=== PATIENT | female | born 1965 | race Caucasian/White ===

== ENCOUNTER 2017-04-30 18:14 | Emergency (ER) | payer BC ==
--- NOTE | 2017-04-30 18:24 | ED ---
General Adult HPI - General Chief complaint: Abdominal Pain Stated complaint: Lower abd pain Time Seen by Provider: 04/30/17 18:23 Source: patient, RN notes reviewed, old records reviewed Mode of arrival: ambulatory Limitations: no limitations - History of Present Illness Initial comments: This is a 51-year-old female yesterday for evaluation. Patient coming a little quantify pain suprapubic pain and abdominal pain radiating to groin reined to back rating down leg. Severe. Burning. No issues with urination, patient does have some bowel issues, has history of rectal prolapse and secondary to vaginal deliveries. Patient denies any fevers or chills should no significant sick contacts, patient denies prior colonoscopy her prior episodes of abdominal pain - Related Data Home Medications Medication Instructions Recorded Confirmed No Known Home Medications [No 04/30/17 04/30/17 Known Home Medications] Allergies Allergy/AdvReac Type Severity Reaction Status Date / Time No Known Allergies Allergy Verified 04/30/17 18:23 Review of Systems ROS Statement: Those systems with pertinent positive or pertinent negative responses have been documented in the HPI. ROS Other: All systems not noted in ROS Statement are negative. Past Medical History Past Medical History: No Reported History History of Any Multi-Drug Resistant Organisms: None Reported Past Surgical History: No Surgical Hx Reported Past Psychological History: Anxiety Smoking Status: Never smoker Past Alcohol Use History: None Reported Past Drug Use History: None Reported General Exam Limitations: no limitations General appearance: alert, in no apparent distress Head exam: Present: atraumatic, normocephalic, normal inspection Eye exam: Present: normal appearance, PERRL, EOMI. Absent: scleral icterus, conjunctival injection, periorbital swelling ENT exam: Present: normal exam, mucous membranes moist Neck exam: Present: normal inspection. Absent: tenderness, meningismus, lymphadenopathy Respiratory exam: Present: normal lung sounds bilaterally. Absent: respiratory distress, wheezes, rales, rhonchi, stridor Cardiovascular Exam: Present: regular rate, normal rhythm, normal heart sounds. Absent: systolic murmur, diastolic murmur, rubs, gallop, clicks GI/Abdominal exam: Present: soft, normal bowel sounds. Absent: distended, tenderness, guarding, rebound, rigid Extremities exam: Present: normal inspection, full ROM, normal capillary refill. Absent: tenderness, pedal edema, joint swelling, calf tenderness Back exam: Present: normal inspection Neurological exam: Present: alert, oriented X3, CN II-XII intact Psychiatric exam: Present: normal affect, normal mood Skin exam: Present: warm, dry, intact, normal color. Absent: rash Course Vital Signs 04/30/17 04/30/17 04/30/17 18:20 19:28 19:56 Temperature 99 F Pulse Rate 107 H 92 87 Respiratory 20 18 18 Rate Blood Pressure 213/116 221/116 204/104 O2 Sat by Pulse 98 99 Oximetry - Reevaluation(s) Reevaluation #1: 04/30/17 20:16 Patient is in no acute distress no abdominal pain at this time Medical Decision Making - Medical Decision Making 51. Ear with nonspecific left lower quadrant abdominal pain worse with bowel movements. Patient does have follow-up with GI will see Dr. Mcnulty's continue follow CT is negative, spoke extensively regarding blood pressure, stateds strictly whitecoat syndrome refuses take medication the patient will be discharged home - Lab Data Result diagrams: 04/30/17 19:20 04/30/17 19:20 Lab Results 04/30/17 04/30/17 04/30/17 Range/Units 19:20 19:20 19:20 WBC 8.5 (3.8-10.6) k/uL RBC 5.23 (3.80-5.40) m/uL Hgb 15.0 (11.4-16.0) gm/dL Hct 43.8 (34.0-46.0) % MCV 83.6 (80.0-100.0) fL MCH 28.7 (25.0-35.0) pg MCHC 34.3 (31.0-37.0) g/dL RDW 13.7 (11.5-15.5) % Plt Count 297 (150-450) k/uL Neutrophils % 68 % Lymphocytes % 24 % Monocytes % 5 % Eosinophils % 1 % Basophils % 1 % Neutrophils # 5.8 (1.3-7.7) k/uL Lymphocytes # 2.1 (1.0-4.8) k/uL Monocytes # 0.4 (0-1.0) k/uL Eosinophils # 0.1 (0-0.7) k/uL Basophils # 0.1 (0-0.2) k/uL Sodium 137 (137-145) mmol/L Potassium 3.7 (3.5-5.1) mmol/L Chloride 97 L (98-107) mmol/L Carbon Dioxide 27 (22-30) mmol/L Anion Gap 13 mmol/L BUN 6 L (7-17) mg/dL Creatinine 0.64 (0.52-1.04) mg/dL Est GFR (MDRD) Af Amer >60 (>60 ml/min/1.73 sqM) Est GFR (MDRD) Non-Af >60 (>60 ml/min/1.73 sqM) Glucose 81 (74-99) mg/dL Calcium 10.2 (8.4-10.2) mg/dL Total Bilirubin 0.8 (0.2-1.3) mg/dL AST 38 H (14-36) U/L ALT 39 (9-52) U/L Alkaline Phosphatase 73 (38-126) U/L Total Protein 8.8 H (6.3-8.2) g/dL Albumin 5.3 H (3.5-5.0) g/dL Amylase 55 (30-110) U/L Lipase 86 (23-300) U/L Urine Color Colorless Urine Appearance Clear (Clear) Urine pH 7.0 (5.0-8.0) Ur Specific [place] 1.001 (1.001-1.035) Urine Protein Negative (Negative) Urine Glucose (UA) Negative (Negative) Urine Ketones Negative (Negative) Urine Blood Negative (Negative) Urine Nitrite Negative (Negative) Urine Bilirubin Negative (Negative) Urine Urobilinogen <2.0 (<2.0) mg/dL Ur Leukocyte Esterase Negative (Negative) - Radiology Data Radiology results: report reviewed (CT abdomen and pelvis is negative for acute disease), image reviewed Disposition Clinical Impression: Abdominal pain Disposition: HOME SELF-CARE Condition: Good Instructions: Abdominal Pain (ED) Referrals: None,Stated [Primary Care Provider] - 1-2 days
[2017-04-30] MEDS ORDERED: RX INFO: IV CONTRAST WAS GIVEN 1 EACH MISC MISCELLANE PRN (18:32)
[2017-04-30] MEDS ORDERED: SODIUM CHLORIDE 0.9% 1,000 ML IV STA ×2 (18:32)
[2017-04-30] MEDS ORDERED: KETOROLAC 30 MG/ML 1 ML VIAL IVP STA (18:32)
[2017-04-30] MEDS: MORPHINE SULFATE 4 MG/ML SYRINGE IV STA ×2 (19:20→19:21)
[2017-04-30 19:36] LABS: Basophils # (A) 0.1 k/uL (0-0.2); Basophils % (A) 1 %; CH 29.5; CHCM 35.4; Eosinophils # (A) 0.1 k/uL (0-0.7); Eosinophils % (A) 1 %; HCT 43.8 % (34.0-46.0); HDW 2.26; Luc # (Auto) 0.11; Luc % (Auto) 1; Lymphocytes # (A) 2.1 k/uL (1.0-4.8); Lymphocytes % (A) 24 %; MCH 28.7 pg (25.0-35.0); MCHC 34.3 g/dL (31.0-37.0); MCV 83.6 fL (80.0-100.0); Mean Platelet Volume 7.5; Monocytes # (A) 0.4 k/uL (0-1.0); Monocytes % (A) 5 %; Neutrophils # (A) 5.8 k/uL (1.3-7.7); Neutrophils % (A) 68 %; RBC 5.23 m/uL (3.80-5.40); RDW 13.7 % (11.5-15.5); WBC 8.5 k/uL (3.8-10.6); WBC (Perox) 8.08
[2017-04-30 19:38] LABS: Appearance,Urine Clear (Clear); Bilirubin,Urine Negative (Negative); Glucose,Urine (UA) Negative (Negative); Ketones,Urine Negative (Negative); Leukocyte Esterase,Urine Negative (Negative); Nitrite,Urine Negative (Negative); Protein,Urine Negative (Negative); Specific Gravity,Urine 1.001 (1.001-1.035); UA Billing (MACRO vs. MICRO) CHEM; Urobilinogen,Urine <2.0 mg/dL (<2.0)
[2017-04-30 19:52] LABS: ALT 39 U/L (9-52); AST 38 U/L (14-36); Alkaline Phosphatase 73 U/L (38-126); Amylase 55 U/L (30-110); Anion Gap 13 mmol/L; Blood Urea Nitrogen 6 mg/dL (7-17); Calcium 10.2 mg/dL (8.4-10.2); Carbon Dioxide 27 mmol/L (22-30); Chloride 97 mmol/L (98-107); Glucose 81 mg/dL (74-99); Non-African American GFR(MDRD) >60 (>60 ml/min/1.73 sqM); Potassium 3.7 mmol/L (3.5-5.1); Sodium 137 mmol/L (137-145); Total Bilirubin 0.8 mg/dL (0.2-1.3); Total Protein 8.8 g/dL (6.3-8.2)
--- NOTE | 2017-04-30 20:00 | CT ---
EXAMINATION TYPE: CT abdomen pelvis w con DATE OF EXAM: 04/30/2017 COMPARISON: NONE HISTORY: left groin pain described as "burning" sensation. hx of ovarian cysts and uterine prolapse CT DLP: 343.1 mGycm Automated exposure control for dose reduction was used. TECHNIQUE: Helical acquisition of images was performed from the lung bases through the pelvis. CONTRAST: Performed without Oral Contrast and with IV Contrast, patient injected with 100 mL of Omnipaque 300. FINDINGS: Lung bases are clear. There is no pleural effusion. Heart size is normal. Liver has normal size. Spleen and pancreas appear normal. There is a 1.5 cm low-density area in the a nterior right lobe of the liver consistent with a cyst. Gallbladder appears normal. Bile ducts are no t dilated. There is no adrenal mass. Kidneys show satisfactory contrast opacification. There is no hydronephrosi s. Ureters are not dilated. There is a prominent left than right extrarenal pelvis. There is no retro peritoneal adenopathy. There is no ascites. Bladder distends smoothly. There is a 5 x 4 cm right ovar bibi cyst. Appendix is not definitely seen. There is no sign of appendicitis. There is some retained f ecal material throughout the colon. I see no bony destructive process. Uterus is retroverted. IMPRESSION: LARGE RIGHT OVARIAN CYST. L4-5 SPONDYLOTIC CHANGES. CONSTIPATION. SMALL CYST IN THE RIGHT LOBE OF THE LIVER. NO EVIDENCE OF A HERNIA. LARGE URINARY BLADDER RAISES THE POSSIBILITY OF A BLADDER OUTLET OBS TRUCTION.
[2017-04-30 20:39] VITALS: BP 179/103; PULSE 73; RESP 14; TEMP 98.6
== END 2017-04-30 20:39 | disposition home or self-care (01) ==
LOC: EC 18:14
DX: R10.32 Left lower quadrant pain (principal); Z53.20 Procedure and treatment not carried out because of patient's decision for unspecified reasons
CPT/HCPCS: 36415; 80053; 82150; 83605; 83690; 85025; 81003; 87086; 74177; 99284; 96374; 96361; J1885; Q9967

== ENCOUNTER 2020-10-18 17:10 | Emergency (ER) | payer BC ==
[2020-10-18 17:18] VITALS: TEMP 98.6
[2020-10-18 18:53] LABS: Appearance,Urine Clear (Clear); Bilirubin,Urine Negative (Negative); Blood,Urine Small (Negative); Color,Urine Colorless; Glucose,Urine (UA) Negative (Negative); Ketones,Urine Trace (Negative); Leukocyte Esterase,Urine Negative (Negative); Nitrite,Urine Negative (Negative); Protein,Urine Negative (Negative); RBC,Urine <1 /hpf (0-5); Specific Gravity,Urine 1.002 (1.001-1.035); Urobilinogen,Urine <2.0 mg/dL (<2.0)
[2020-10-18 18:55] LABS: ALT 15 U/L (4-34); AST 30 U/L (14-36); African American GFR (CKD) >90 (>60 ml/min/1.73 sqM); Albumin 4.9 g/dL (3.5-5.0); Alkaline Phosphatase 72 U/L (38-126); Anion Gap 11 mmol/L; Blood Urea Nitrogen 8 mg/dL (7-17); Calcium 10.1 mg/dL (8.4-10.2); Carbon Dioxide 24 mmol/L (22-30); Chloride 98 mmol/L (98-107); Glucose 92 mg/dL (74-99); Non-African American GFR(CKD) >90 (>60 ml/min/1.73 sqM); Potassium 3.6 mmol/L (3.5-5.1); Sodium 133 mmol/L (137-145); Total Bilirubin 0.7 mg/dL (0.2-1.3); Total Protein 7.7 g/dL (6.3-8.2)
[2020-10-18 18:58] LABS: Basophils # (A) 0.1 k/uL (0-0.2); Basophils % (A) 1 %; Eosinophils # (A) 0.1 k/uL (0-0.7); Eosinophils % (A) 1 %; HCT 40.8 % (34.0-46.0); HGB 13.9 gm/dL (11.4-16.0); Lymphocytes # (A) 2.4 k/uL (1.0-4.8); Lymphocytes % (A) 26 %; MCH 28.3 pg (25.0-35.0); MCHC 34.1 g/dL (31.0-37.0); Mean Platelet Volume 7.2; Monocytes # (A) 0.4 k/uL (0-1.0); Monocytes % (A) 4 %; Neutrophils # (A) 6.3 k/uL (1.3-7.7); Neutrophils % (A) 68 %; Platelet Count 324 k/uL (150-450); RBC 4.92 m/uL (3.80-5.40); RDW 12.7 % (11.5-15.5); WBC 9.2 k/uL (3.8-10.6)
--- NOTE | 2020-10-18 19:06 | ED ---
Female Urogenital HPI - General Source: patient Mode of arrival: ambulatory Limitations: no limitations <Kae Cooper - Last Filed: 10/19/20 06:33> <Deirdre Carlos - Last Filed: 10/21/20 21:15> - General Chief complaint: Urogenital Stated complaint: Female Time Seen by Provider: 10/18/20 17:31 - History of Present Illness Initial comments: 55yo female presenting today for chief complaint of possible vaginal lesion. Patient states she noticed a bump on her vagina near the opening. She states she was concerned and wanted to be evaluated. Denies STI concern, discharge, vaginal bleeding. In addition patient states lately she has been feeling like she has sometimes difficulty urinating and she has been constipated. She states she struggles with chronic constipation this is not unusual. SHe has had a history of rectocele and cystocele which were both repaired. she states she has soem fullness in lower abdomen no pain and wanted to be sure this wasnt related to rectocele. She states she has been able to urinate with no difficulty today. denies hematuria. Patient states that she did notice some left flank pain the other day is not sure she is a kidney stone. Patient states she has been drinki ng a lot of water today is not sure if this will dilute her urine. Patient denies any fevers chills or general malaise. Patient states she is very anxious and comes to emergency departments and hospitals. Patient states that her blood pressure is elevated however at home and is typically 140/90. She denies chest pain shortness of breath headaches dizziness lightheadedness back or abdominal pain. Remaining ROS (-). Upon arrival patient anxious about the visit but appears well nontoxic. (Kae Cooper) - Related Data Home Medications Medication Instructions Recorded Confirmed No Known Home Medications 04/30/17 04/30/17 Allergies Allergy/AdvReac Type Severity Reaction Status Date / Time lisinopril AdvReac Chest Pain Verified 10/18/20 17:19 Review of Systems ROS Other: All systems not noted in ROS Statement are negative. <Kae Cooper - Last Filed: 10/19/20 06:33> ROS Other: All systems not noted in ROS Statement are negative. <Deirdre Carlos - Last Filed: 10/21/20 21:15> ROS Statement: Those systems with pertinent positive or pertinent negative responses have been documented in the HPI. Past Medical History Past Medical History: Hypertension History of Any Multi-Drug Resistant Organisms: None Reported Past Surgical History: Hysterectomy Additional Past Surgical History / Comment(s): rectoceal repair, cystoceal repair. Past Psychological History: Anxiety Smoking Status: Never smoker Past Alcohol Use History: None Reported Past Drug Use History: None Reported <Kae Cooper - Last Filed: 10/19/20 06:33> General Exam Limitations: no limitations <Kae Cooper - Last Filed: 10/19/20 06:33> - General Exam Comments Initial Comments: General: The patient is awake and alert, in no distress Eye: +3 mm pupils are equal, round and reactive to light, extra-ocular movements are intact. No nystagmus. There is normal conjunctiva bilaterally. No signs of icterus. Ears, nose, mouth and throat: There are moist mucous membranes and no oral lesions. Neck: The neck is supple, there is no tenderness or JVD. Cardiovascular: There is a regular rate and rhythm. No murmur, rub or gallop is appreciated. Respiratory: Lungs are clear to auscultation, respirations are non-labored, breath sounds are equal. No wheezes, stridor, rales, or rhonchi. Gastrointestinal: Soft, non-distended, non-tender abdomen without masses or organomegaly noted. There is no rebound or guarding present. : no rectocele or cystocele appreciated when patient is standing nor lying. no vaginal bleeding. There is a small comedone appearing lesion with white center <1cm at the 5oclock position of the introitus. no ulcerations, no other lesions. Musculoskeletal: Normal ROM, no tenderness. Strength 5/5. Sensation intact. Radial pulses equal bilaterally 2+. Neurological: A&O x 3. CN II-XII intact grossly, There are no obvious motor or sensory deficits. Coordination appears grossly intact. Speech is normal. Skin: Skin is warm and dry and no rashes or lesions are noted. Psychiatric: Cooperative, appropriate mood & affect, normal judgment. (Kae Cooper) Course Vital Signs 10/18/20 10/18/20 17:12 19:13 Temperature 98.6 F Pulse Rate 89 79 Respiratory 17 18 Rate Blood Pressure 221/135 200/109 O2 Sat by Pulse 99 98 Oximetry Medical Decision Making - Lab Data Result diagrams: 10/18/20 18:37 10/18/20 18:37 <Kae Cooper - Last Filed: 10/19/20 06:33> - Lab Data Result diagrams: 10/18/20 18:37 10/18/20 18:37 <Deirdre Carlos - Last Filed: 10/21/20 21:15> - Medical Decision Making 55yo presenting for vaginal lesion/changes in urination/constipation. Patient states urinating without difficulty today, no incontinence. Patient struggles with chronic constipation. Patient had no clincal evidence of rectocele or cystocele on exam. Patient lesion appears to be consistent with ingrown hair vs comedone, no abscess, no ulceration and did not have any characteristic of HSV/chancre or syphyllis lesion. Patient states she just noticed it, and i recommended monitoring to ensure no cancerous lesion althought this is felt to be MUCH less likely. Patient signed out pending CT. IN regards to blood pressure, patient is obviously anxious stating it multiple times how she hates going to the doctors/hospitals. She states when she is in one she has blood pressure "through the roof" and does not want it address. denies chest pian, dyspnea, headaches, visual changes, nausea, vomiting ect. (Kae Cooper) The patient was seen by myself after she was signed out to me. I did discuss results with the patient. I reviewed the patient's CT of her abdomen which demonstrates no acute process. I discussed diagnosis, differential and treatment options. This time the patient will follow up with her urologist for further evaluation. Return to the emergency room for any new or worsening symptoms. Patient was in agreement with the treatment plan and discharged home in stable condition (Deirdre Carlos) - Lab Data Lab Results 10/18/20 10/18/20 10/18/20 Range/Units 18:37 18:37 18:37 WBC 9.2 (3.8-10.6) k/uL RBC 4.92 (3.80-5.40) m/uL Hgb 13.9 (11.4-16.0) gm/dL Hct 40.8 (34.0-46.0) % MCV 83.0 (80.0-100.0) fL MCH 28.3 (25.0-35.0) pg MCHC 34.1 (31.0-37.0) g/dL RDW 12.7 (11.5-15.5) % Plt Count 324 (150-450) k/uL MPV 7.2 Neutrophils % 68 % Lymphocytes % 26 % Monocytes % 4 % Eosinophils % 1 % Basophils % 1 % Neutrophils # 6.3 (1.3-7.7) k/uL Lymphocytes # 2.4 (1.0-4.8) k/uL Monocytes # 0.4 (0-1.0) k/uL Eosinophils # 0.1 (0-0.7) k/uL Basophils # 0.1 (0-0.2) k/uL Sodium 133 L (137-145) mmol/L Potassium 3.6 (3.5-5.1) mmol/L Chloride 98 (98-107) mmol/L Carbon Dioxide 24 (22-30) mmol/L Anion Gap 11 mmol/L BUN 8 (7-17) mg/dL Creatinine 0.53 (0.52-1.04) mg/dL Est GFR (CKD-EPI)AfAm >90 (>60 ml/min/1.73 sqM) Est GFR (CKD-EPI)NonAf >90 (>60 ml/min/1.73 sqM) Glucose 92 (74-99) mg/dL Calcium 10.1 (8.4-10.2) mg/dL Total Bilirubin 0.7 (0.2-1.3) mg/dL AST 30 (14-36) U/L ALT 15 (4-34) U/L Alkaline Phosphatase 72 (38-126) U/L Total Protein 7.7 (6.3-8.2) g/dL Albumin 4.9 (3.5-5.0) g/dL Urine Color Colorless Urine Appearance Clear (Clear) Urine pH 7.0 (5.0-8.0) Ur Specific [employer] 1.002 (1.001-1.035) Urine Protein Negative (Negative) Urine Glucose (UA) Negative (Negative) Urine Ketones Trace H (Negative) Urine Blood Small H (Negative) Urine Nitrite Negative (Negative) Urine Bilirubin Negative (Negative) Urine Urobilinogen <2.0 (<2.0) mg/dL Ur Leukocyte Esterase Negative (Negative) Urine RBC <1 (0-5) /hpf Disposition <Kae Cooper - Last Filed: 10/19/20 06:33> Is patient prescribed a controlled substance at d/c from ED?: No Time of Disposition: 20:09 <Deirdre Carlos - Last Filed: 10/21/20 21:15> Clinical Impression: Abdominal pain, Hypertension Disposition: HOME SELF-CARE Condition: Stable Instructions (If sedation given, give patient instructions): Abdominal Pain (ED), Hypertension (ED) Additional Instructions: Please follow up with your PCP. Return to the ED for any new or worsening symptoms. Referrals: None,Stated [Primary Care Provider] - 1-2 days
[2020-10-18 19:17] VITALS: BP 200/109; PULSE 79; RESP 18
--- NOTE | 2020-10-18 19:46 | CT ---
EXAMINATION TYPE: CT abdomen pelvis wo con DATE OF EXAM: 10/18/2020 COMPARISON: 04/30/2017 CT with contrast HISTORY: LT flank pain, urinary changes. CT DLP: 365.3 mGycm Automated exposure control for dose reduction was used. TECHNIQUE: Helical acquisition of images was performed from the lung bases through the pelvis. FINDINGS: Within the limitations of noncontrast CT the following CT observations are made: LUNG BASES: No acute findings. LIVER/GB: No significant abnormality is appreciated. PANCREAS: No significant abnormality is seen. SPLEEN: No significant abnormality is seen. ADRENALS: No significant abnormality is seen. KIDNEYS, URETERS, AND BLADDER: The bilateral extrarenal pelves are redemonstrated, similar in appeara nce to the April 30, 2017 CT with contrast. There is no hydronephrosis or hydroureter. There is a nonobstructing 2 mm left mid renal calcification. No other calcifications within the kidne ys, ureters, or bladder. There is mild urinary bladder distention, a nonspecific finding. FREE AIR: No free air is visualized RETROPERITONEAL ADENOPATHY: None visualized REPRODUCTIVE ORGANS: No significant abnormality is seen URINARY BLADDER: No significant abnormality is seen. PELVIC ADENOPATHY: None visualized. OSSEOUS STRUCTURES: No significant abnormality is seen. BOWEL: No significant abnormality is seen. IMPRESSION: 1. NO DEFINITE ACUTE CT PROCESS. 2. MILD URINARY BLADDER DISTENTION NOTED, NONSPECIFIC FINDING.
== END 2020-10-18 20:35 | disposition home or self-care (01) ==
LOC: EC 17:10
DX: I10 Essential (primary) hypertension (principal); K59.09 Other constipation; N89.8 Other specified noninflammatory disorders of vagina; Z88.8 Allergy status to other drugs, medicaments and biological substances; Z98.890 Other specified postprocedural states
CPT/HCPCS: 36415; 74176; 80053; 81001; 85025; 99284